=== PATIENT | male | born 1980 | race African-American/Black ===

== ENCOUNTER 2018-04-04 13:22 | Emergency (ER) | payer SELFPAY ==
[2018-04-04] MEDS ORDERED: TRIAMCINOLONE AC0.13 TP (13:55)
[2018-04-04 14:21] VITALS: BP 171/81
== END 2018-04-04 14:29 | disposition home or self-care (01) ==
LOC: ED 13:22
DX: T63.481A Toxic effect of venom of other arthropod, accidental (unintentional), initial encounter (principal); L23.89 Allergic contact dermatitis due to other agents
CPT/HCPCS: J2930